=== PATIENT | male | born 1955 | race Caucasian/White ===

== ENCOUNTER 2016-12-12 23:14 | Inpatient (IN) | payer OTHER ==
[~2016-12-12] VITALS: Ht 182.9 cm; Wt 95.3 kg
--- NOTE | 2016-12-13 00:16 | NUR ---
PT FROM HOME C/O LEFT EAR INFECTION. PT STATES 2 WEEKS AGO HE WENT TO A URGENT CARE AND GIVEN AMOXICILLIN FOR 1 WEEK FOR EAR INFECTION AND THE INFECTION BECAME WORSE, WENT BACK TO URGENT CARE AND GIVEN VICODIN, CIPRO DROPS, AND LEVOFLAXCIN. PT STATES IT HAS BECOME EVEN WORSE WITH DISCHARGE FROM HIS EAR. PT STATES HE CANNOT HEAR ANYTHING OUT OF HIS LEFT EAR. PT DENIES RIVERA OR DIZZINESS.
--- NOTE | 2016-12-13 00:28 | ED EAR COMPLAINT ---
History of Present Illness General Chief Complaint: Ear Complaints Stated Complaint: "PER PT LT EAR INFECTION" Source: patient, old records Exam Limitations: no limitations Vital Signs & Intake/Output Vital Signs & Intake/Output Vital Signs Date Time Temp Pulse Resp B/P Pulse O2 O2 Flow FiO2 Ox Delivery Rate 12/13 0014 98.6 78 18 173/88 95 Room Air Allergies Coded Allergies: meperidine (From Demerol) (Severe, ANAPHYLAXIS 12/13/16) Uncoded Allergies: JELCO LG TERM IV (UNKNOWN 01/21/12) Triage Note: PT FROM HOME C/O LEFT EAR INFECTION. PT STATES 2 WEEKS AGO HE WENT TO A URGENT CARE AND GIVEN AMOXICILLIN FOR 1 WEEK FOR EAR INFECTION AND THE INFECTION BECAME WORSE, WENT BACK TO URGENT CARE AND GIVEN VICODIN, CIPRO DROPS, AND LEVOFLAXCIN. PT STATES IT HAS BECOME EVEN WORSE WITH DISCHARGE FROM HIS EAR. PT STATES HE CANNOT HEAR ANYTHING OUT OF HIS LEFT EAR. PT DENIES RIVERA OR DIZZINESS. Triage Nurses Notes Reviewed? yes Onset: Abrupt Duration: week(s): (2), constant Timing: recent history Injury Environment: home Severity: severe Severity Numbers: 10 No Modifying Factors: none Associated Symptoms: DENIES HPI: 61-year-old male with history of chronic stroke presents emergency room complaining of a 2 week history of progressively worsening constant now sharp severe 10 out of 10 left ear pain and swelling. He was seen in urgent care and was initially started on amoxicillin however states the swelling got worse. He denies any known trauma or swelling. He went back to the urgent care was prescribed Vicodin Cipro eardrops and Levaquin are states that it continues, he reports 2. Discharge from his ear. He denies headache dizziness lightheadedness chest pain no fever no chills no sore throat difficulty swallowing. He denies any right ear symptoms. He is not follow-up with an ear nose and throat physician (TAN MENJIVAR) Past History Travel History Traveled to [place] past 21 day No Medical History Any Pertinent Medical History? see below for history Cardiovascular: hyperlipidemia Surgical History Surgical History: none Psychosocial History What is your primary language Indonesian Tobacco Use: Never used ETOH Use: occasional use Illicit Drug Use: denies illicit drug use Family History Hx Contributory? No (TAN MENJIVAR) Review of Systems Review of Systems Constitutional: Reports: see HPI. All Other Systems: Reviewed and Negative Comments Review of systems: See HPI, All other systems negative. Constitutional, no chills no fever, no malaise HEENT: No visual changes no sore throat no congestion Cardiovascular: No chest pain , no palpitation Skin, no rashes, no change in skin Respiratory: No dyspnea no cough no sputum GI: No nausea no vomiting, no diarrhea : No dysuria Muscle skeletal: No joint pain, no joint swelling, no back pain, no neck pain, Neurologic: No numbness no headache Psych: No stress Heme/endocrine: No bruising no bleeding Immunology: No lymphadenopathy (TAN MENJIVAR) Physical Exam Physical Exam General Appearance: well developed/nourished, no apparent distress, alert, awake Ears: Left: swelling. Comments: Well-developed well-nourished person in no acute distress Head/Face: Atraumatic, no maxillary/frontal sinus tenderness, no facial swelling Eyes: PERRL, EOMI, no conjunctival injection. No nystagmus Ear: There is significant swelling tenderness and mild erythema over the left auricle, there is swelling and tenderness over the left temporal scalp there is no erythema no induration or fluctuance, there is significant swelling to the left EAC limiting evaluation of the TM The right External auditory canal and Tympanic membrane clear, no erythema, no FB. Nose: atraumatic.Normal inspection: No bleeding, no septal hematoma Throat: Moist mucous membranes.Pharynx normal. No pharyngeal erythema/exudate seen. No stridor/drooling or assymetry. No swelling or edema. Neck: Supple, no lymphadenopathy, FROM Back: Nontender, no CVA tenderness. Full range of motion Cardiovascular: Regular rate and rhythms no murmurs rubs Respiratory: No respiratory distress. Patient speaking in full complete sentences. Breath sounds clear to auscultation bilaterally: NO W/R/R Extremity: No edema, full range of motion of extremities Neuro: Alert oriented x3, motor sensory normal. There were no obvious focal neurologic abnormalities. Skin: No appreciable rash on exposed skin, skin is warm and dry. Psych: Mood and affect is normal, memory and judgment is normal. (TAN MENJIVAR) Progress Differential Diagnoses I considered in my differential mastoiditis otitis CHOLESTEATOMA, ABSCESS Plan of Care: Orders Procedure Date/time Status Nothing by Mouth 12/13 B Active Saline Lock 02/16 0212 Active Misc Message 12/13 211 Active ED Holding Orders 12/13 211 Active Vital Signs 12/13 211 Active Code Status 12/13 211 Active Admit to inpatient 12/13 210 Active Saline Lock 12/13 34 Active COMPREHENSIVE METABOLIC PANEL 12/13 34 Complete CBC WITHOUT DIFFERENTIAL 12/13 34 Complete Current Medications Sig/Ursula Start time Last Medication Dose Stop Time Status Admin Ceftazidime 1,000 MG ONCE ONE 12/13 214 UNVr (Fortaz) 12/13 215 Ampicillin Sodium/ 3,000 MG ONCE ONE 12/13 44 CAN Sulbactam Sodium 12/13 113 (Unasyn) Sodium Chloride 100 ML (Normal Saline 0.9%) Laboratory Tests 12/13/1639: Anion Gap 13, Estimated GFR > 60, BUN/Creatinine Ratio 15.6, Glucose 112 H, Calcium 9.3, Total Bilirubin 0.6, AST 24, ALT 41, Alkaline Phosphatase 69, Total Protein 7.4, Albumin 4.2, Globulin 3.2, Albumin/Globulin Ratio 1.3, CBC w Diff NO MAN DIFF REQ, RBC 4.58 L, MCV 88.6, MCH 30.4, RDW 14.6 H, MPV 8.8, Gran % 59.4, Lymphocytes % 26.8, Monocytes % 9.9 H, Eosinophils % 3.2, Basophils % 0.7 , Absolute Granulocytes 4.5, Absolute Lymphocytes 2.0, Absolute Monocytes 0.7 H , Absolute Eosinophils 0.2, Absolute Basophils 0.1, PUBS MCHC 34.3 Labs ordered old records reviewed patient acuity Unasyn, CT ordered Case discussed with and signed out to Dr. Brennan at 1 AM pending labs and CAT scan (TAN MENJIVAR) Diagnostic Imaging: Viewed by Me: CT Scan. Discussed w/RAD: CT Scan. Initial ED EKG: none Hand-Off Endorsed To: ALAN SIMENTAL,KARIN Thurman Endorsed Time: 113 Pending: CT, labs (TAN MENJIVAR) Differential Diagnoses I considered the following diagnoses in my evaluation of the patient: Radiology Impression: head ct... inflammatory changes over left temporal bone. partial opacification of ear canal... full report below. Comments: PATIENT: RITO WOODS PRESENT AGE: 61 PATIENT ACCOUNT NO: [id number] : 57 LOCATION: [facility] ORDERING PHYSICIAN: TAN SLOAN SERVICE DATE: 12/13/16 EXAM TYPE: CAT - CT HEAD WO IV CONTRAST EXAMINATION: CT HEAD WITHOUT CONTRAST CLINICAL INFORMATION: Left ear swelling, pain and tenderness over temporal scalp COMPARISON: None TECHNIQUE: Contiguous axial imaging was performed from the skull base to vertex without intravenous administration of contrast. DLP: 772.13 mGy-cm FINDINGS: There is no evidence of acute intracranial hemorrhage or territorial infarction. No abnormal mass effect or midline shift is seen. Fuentes to white matter differentiation is well preserved. No extra-axial fluid collections are identified. No evidence of hydrocephalus. There is soft tissue thickening and subcutaneous stranding surrounding the left external auditory canal which has an inflammatory appearance, and the canal lumen appears asymmetrically narrowed. Subcutaneous stranding extends over the left temporal bone. The left middle ear cavity also appears partially opacified. Mastoid air cells remain well aerated, with no acute bony abnormality seen. No discrete fluid collection is seen to suggest abscess formation. Paranasal sinuses are well-aerated. IMPRESSION: Inflammatory changes surrounding the left external auditory canal and overlying the left temporal bone. No acute underlying osseous changes are identified. Partial opacification of the left middle ear cavity. DICTATED BY: KAYLEE RICHARDS MD DATE/TIME DICTATED:12/13/16141 DIRECTOR AMBULATORY:RYAN DATE/TIME TRANSCRIBED:12/13/16141 CONFIDENTIAL, DO NOT COPY WITHOUT APPROPRIATE AUTHORIZATION. <Electronically signed in Other Vendor System> SIGNED BY: KAYLEE RICHARDS MD 12/13/16 0154 (ALAN SIMENTAL,KARIN Thurman) Departure Departure Disposition: HOME OR SELF CARE Condition: Stable Referrals: SAUD SIMENTAL,DANIEL WETZEL MD,JESUS Matamoros (PCP/Family) Additional Instructions: FOLLOW UP WITH EAR NOSE AND THROAT PHYSICIAN DR ANSARI THIS WEEK. RETURN AT ANYTIME SOONER WITH ANY CONCERNS Departure Forms: Customer Survey General Discharge Information (SALLY SLOAN,TAN) Departure Clinical Impression Primary Impression: Malignant otitis externa Secondary Impressions: Cellulitis Admission Note Spoke With: ROMEO PERDOMO MD Documentation of Exam: Documentation of any treatments & extenuating circumstances including Concerns Regarding Discharge (functional status, medication knowledge or non-compliance, living conditions, etc.) that warrant an admission rather than observation: pt with malignant otitis externa with significant tenderness/swelling around left ear. He has been on levaquin and ciprodex x 7 days with worsening symptoms. This represents a failure of outpatient antibiotics and is high risk given the anatomic involvement. No mastoiditis or sign of urgent surgical issues. Pt merits ceftaz to cover for pseudomonas (most likely culprit), would consider vancomycin.... Would consider ent/id consults in am. PA/EQUIPMENT SERVICE ASSOCIATE Co-Sign Statement Statement: ED Attending supervision documentation- [x] I saw and evaluated the patient. I have also reviewed all the pertinent lab results and diagnostic results. I agree with the findings and the plan of care as documented in the PA's/EQUIPMENT SERVICE ASSOCIATE's documentation. pt with significant tenderness around left ear with inflamed external ear canal. This represents failure of out patient abx. pt merits iv abx. [] I have reviewed the ED Record and agree with the PA's/EQUIPMENT SERVICE ASSOCIATE's documentation. [] Additions or exceptions (if any) to the PAs/EQUIPMENT SERVICE ASSOCIATE's note and plan are summarized below: [] (ALAN SIMENTAL,KARIN Thurman)
--- NOTE | 2016-12-13 00:30 | NUR ---
EVCRICKET BY TAN SÁNCHEZ
--- NOTE | 2016-12-13 00:50 | NUR ---
IV INSERTED. LABS DRAWN--SST,LAV,BLUE ALL SENT TO LAB [facility] 1.[address] PENDING
[2016-12-13 01:09] LABS: ABSOLUTE BASOPHIL COUNT 0.1 /CUMM (0.0-0.2); ABSOLUTE EOSINOPHIL COUNT 0.2 /CUMM (0.0-0.7); ABSOLUTE GRANULOCYTE CT 4.5 /CUMM (1.4-6.5); ABSOLUTE MONOCYTE COUNT 0.7 /CUMM (0.10-0.60); BASOPHIL % 0.7 % (0.0-2.0); EOSINOPHIL % 3.2 % (0-5); GRANULOCYTE % 59.4 % (42.2-75.2); HEMATOCRIT 40.6 % (42-52); MEAN CORPUSCULAR HGB 30.4 PG (27.0-31.0); MEAN CORPUSCULAR HGB CONC 34.3 G/DL (33.0-37.0); MEAN CORPUSCULAR VOLUME 88.6 FL (80.0-94.0); MEAN PLATELET VOLUME 8.8 FL (7.4-10.4); PLATELET COUNT 261 /CUMM (130-400); RBC DISTRIBUTION WIDTH 14.6 % (11.5-14.5); RED BLOOD CELL CT 4.58 /CUMM (4.70-6.10); WHITE BLOOD CELL COUNT 7.6 /CUMM (4.8-10.8)
--- NOTE | 2016-12-13 01:10 | NUR ---
TO CT VIA STRETCHER
--- NOTE | 2016-12-13 01:54 | CT SCAN REPORT ---
EXAMINATION: CT HEAD WITHOUT CONTRAST CLINICAL INFORMATION: Left ear swelling, pain and tenderness over temporal scalp COMPARISON: None TECHNIQUE: Contiguous axial imaging was performed from the skull base to vertex without intravenous administration of contrast. DLP: 772.13 mGy-cm FINDINGS: There is no evidence of acute intracranial hemorrhage or territorial infarction. No abnormal mass effect or midline shift is seen. Fuentes to white matter differentiation is well preserved. No extra-axial fluid collections are identified. No evidence of hydrocephalus. There is soft tissue thickening and subcutaneous stranding surrounding the left external auditory canal which has an inflammatory appearance, and the canal lumen appears asymmetrically narrowed. Subcutaneous stranding extends over the left temporal bone. The left middle ear cavity also appears partially opacified. Mastoid air cells remain well aerated, with no acute bony abnormality seen. No discrete fluid collection is seen to suggest abscess formation. Paranasal sinuses are well-aerated. IMPRESSION: Inflammatory changes surrounding the left external auditory canal and overlying the left temporal bone. No acute underlying osseous changes are identified. Partial opacification of the left middle ear cavity.
--- NOTE | 2016-12-13 02:01 | NUR ---
DR PHILLIPS AT BEDSIDE.
--- NOTE | 2016-12-13 02:15 | NUR ---
PT TO BE ADMITTED.
--- NOTE | 2016-12-13 02:37 | History & Physical ---
KRYSTIAN PEGUERO MD 12/13/16 0223: General Information and HPI Source of Information: patient, old records Exam Limitations: no limitations History of Present Illness: Patient is a 61-year-old male with significant past medical history of kidney stone, low back pain, aseptic meningitis (20 yrs ago), history of pericarditis times 2, history of chronic headache presented with chief complaints of infection in left ear since 2 weeks. Patient Claims that, 2 weeks ago he started having pain in the left ear. So he went to urgent care at [place] and was given a course of amoxicillin for a week without any improvement. Even his symptoms got worse, in form of ear discharge, pain and loss of hearing. So he went again to see the doctor over there and was given Vicodin, levofloxacin, ciprofloxacin eyedrops. He took all this medication for 2-3 days without any improvement, so he came to [place] ED for further management. According to him, pain is sharp, piercing, and throbbing, radiating to the head, left eye, and left Jaw. He is also complaining of tinnitus and discharge coming out from left ear with unusual odour. He also lost his hearing. He denies fever, chills, trauma, poking his ear with ear buds, nausea, vomiting, blurry vision, difficulty in swallowing, slurred speech, bumps in neck, headache , dizziness, lightheadedness, chest pain. He may think that it can be associated with the bathing, soaking tub. 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 Denies smoking, occasionally drinks alcohol, denies any drug abuse. Allergies-Demerol Allergies/Medications Allergies: Coded Allergies: meperidine (From Demerol) (Severe, ANAPHYLAXIS 12/13/16) Uncoded Allergies: JELCO LG TERM IV (UNKNOWN 01/21/12) Home Med list Clonazepam 0.5 MG TABLET 1 TAB PO QPM ANXIETY (Reported) Paroxetine HCl 20 MG TABLET 1 TAB PO QPM ANXIETY (Reported) Zolpidem Tartrate (Zolpidem Tartrate ER) 12.5 MG TAB.MPHASE 1 TAB PO QPMP ANXIETY (Reported) Past History Travel History Traveled to [place] past 21 day No Medical History Cardiovascular: hyperlipidemia Surgical History Surgical History: none Past Family/Social History Psychosocial History ETOH Use: occasional use Illicit Drug Use: denies illicit drug use Review of Systems Review of Systems Constitutional: Denies: chills, diaphoresis, fever, malaise, weakness. EENTM: Reports: ear discharge, ear pain, ear redness, hearing changes. Cardiovascular: Denies: no symptoms. Respiratory: Denies: no symptoms. GI: Denies: no symptoms. Genitourinary: Denies: no symptoms. Musculoskeletal: Reports: back pain. Skin: Denies: no symptoms. Neurological/Psychological: Reports: anxiety. Exam & Diagnostic Data Last 24 Hrs of Vital Signs/I&O Vital Signs Date Time Temp Pulse Resp B/P Pulse O2 O2 Flow FiO2 Ox Delivery Rate 12/13 0516 97.5 70 18 144/80 95 Room Air 12/13 0326 97.8 72 18 141/80 94 Room Air 12/13 0014 98.6 78 18 173/88 95 Room Air Intake & Output 12/13 0800 12/13 0000 12/12 1600 Intake Total 200 Output Total Balance 200 Intake, IV 200 Patient 95.254 kg Weight Physical Exam General Appearance Alert, Oriented X3, Cooperative, No Acute Distress Skin redness and swelling of the left side of the face HEENT Atraumatic, PERRLA, EOMI, external ear canal is occluded Neck Supple, No JVD Cardiovascular Normal S1, Normal S2 Lungs Clear to Auscultation, Normal Air Movement Abdomen Soft, No Tenderness, distended Neurological Normal Gait, Normal Speech, Strength at 5/5 X4 Ext Extremities No Clubbing, No Cyanosis, No Edema Vascular Normal Pulses, Pulses Symmetrical Assessment/Plan Assessment: Patient is a 61-year-old male with significant past medical history of kidney stone, low back pain, a septic meningitis(20 yrs ago), history of pericarditis times 2, history of chronic headache presented with chief complaints of infection in eft ear since 2 weeks. Vital signs at the time of admission-temperature 98.6, pulse 78, respiratory rate 18, blood pressure 173/88, SPO2 95% on room air Pertinent labs- CT head - Inflammatory changes surrounding the left external auditory canal and overlying the left temporal bone. No acute underlying osseous changes are identified. Partial opacification of the left middle ear cavity. Problem list- Malignant otitis externa or probably otitis media History of Renal stones Chronic low back pain History of aseptic meningitis, with complication of chronic headache History of pericarditis x 2 Depression Anxiety Plan - * We will admit the patient and the general medical floor * We'll start patient on inj ceftazidime/ciprofloxacin * We placed consult for ENT and follow the recommendation * We will do pain management depends on severity * We will continue all home medication * Diet - regular Diet * Code status - FC * DVT prophylaxis - ALPS/Heparin As Ranked By This Provider Problem List: 1. Otitis media 2. Malignant otitis externa 3. Otalgia of left ear Core Measures/Miscellaneous Acute Coronary Syndrome ACS Diagnosis: No Cerebrovascular Accident CVA/TIA Diagnosis: No Congestive Heart Failure CHF Diagnosis: No Venous Thromboembolism VTE Risk Factors: Age > 40 VTE Prophylaxis Ordered Inpt: Mechanical (ALPS/TEDS) No Mech VTE prophylaxis d/t: No contraindications No VTE Pharm Prophylaxis d/t: No contraindications VTE Diagnosis: No VTE Type: NONE VTE Confirmed by (Test): NONE Severe Sepsis Severe Sepsis Present: No Septic Shock Septic Shock Present: No Miscellaneous Documentation Attending Case Discussed With: ROMEO PERDOMO MD Primary Care Physician: JESUS WETZEL MD Patient sees these Specialists none Level of Patient Care: General Medicine CONOR SUMMERS 12/13/16 0522: Resident Review Statement Resident Statement: discussed with internal consultant Other Findings: He is 61-year-old man with past medical history of pericarditis, aseptic meningitis, kidney stones, back pain and headaches presented to ER with complaint of left ear swelling, redness, pain, hearing loss and clear ear discharge. According to patient also started 2 weeks ago. He went to a walk-in clinic and was prescribed with amoxicillin and Motrin. He finished antibiotic course for full 7 days but did not get any relief. He went back to walk-in clinic and was prescribed again with ciprofloxacin eardrops, oral levofloxacin and Vicodin. This morning patient's ear pain was unbearable and he came to ER. He denies fever, chills, dizziness or lightheadedness, vision changes, swallowing difficulty, sore throat, runny nose, tinnitus or fullness of ear. He feels throbbing pain in his left ear and pain is radiating down to his chart and up to his anabaptism. He reports having cold like symptoms a week before all this started. He denies any trauma to his ear or swimming but reports having bubblebath. He denies smoking, drinking alcohol or use of illicit drugs. Vitals on admission: Temperature 98.6, pulse 78, respiratory rate 18, blood pressure 173/88 and oxygen saturation 95% on room air Pertinent physical exam findings: Swelling and redness of the left external ear. External auditory canal is swollen and narrow. No discharge. No lymphadenopathy post auricle and cervical Head CT: Inflammatory changes surrounding the left external auditory canal and overlying the left temporal bone. No acute underlying osseous changes are identified. Partial opacification of the left middle ear cavity. Assessment and plan He is 61-year-old man with past medical history of pericarditis, aseptic meningitis, kidney stones, back pain and headaches presented to ER with complaint of left ear swelling, redness, throbbing pain, hearing loss and clear ear discharge. Physical exam is notable for otitis externa. CT head is showing partial opacification of left middle ear cavity. We will admit patient to general medicine floor for otitis externa and media. Because patient failed outpatient management with antibiotics so he need IV antibiotics. There is at risk of development of malignant otitis externa. We will start patient on IV ciprofloxacin and ceftaz. ENT consult in a.m. Pain management. Will continue his home medications. Patient was given flu vaccine in ER. Subcutaneous heparin for DVT prophylaxis Full code ROMEO PERDOMO 12/13/16 0557: Attending MD Review Statement Attending Statement Attending MD Statement: examined this patient, discuss w/resident/PA/MEDICAL AIDE, agreed w/resident/PA/MEDICAL AIDE, discussed with family, reviewed EMR data (avail), reviewed images, amended to note Attending Assessment/Plan: CC: Left ear pain pmh: Nephrolithiasis, chronic low back pain, depression, anxiety Patient presented in ER complaining of a 2 week history of left ear pain. It started after upper respiratory prodrome, followed by left ear pain. It is progressively worsening , constant, now sharp severe 10/10 in intensity, worsening swelling in left auricle. He also complains of loss of hearing on the left side which started today and ear discharge which started yesterday, he did not look at the color of discharge. He was seen in urgent care 2 weeks back and was started on amoxicillin. Has pain and swelling was worsening he followed up in antibiotics were changed to Levaquin. After taking Levaquin for 2-3 days pain and swelling still persisted and discharge started. The pain was maximum today so he came to ER. He denies any known trauma, swimming, no history of diabetes, no history of recurrent infections. He denies headache, dizziness, lightheadedness, tinnitus, chest pain , neck pain, fever, chills, sore throat, difficulty swallowing. Vitals: Afebrile, otherwise stable. Complete physical examination unremarkable except left ureter has marked inflamed auricle but no evidence of any necrosis or gangrene, warm, tender, erythematous. External auditory canal is closed with wall edema, trace watery discharge, otherwise examination of external ear, tympanic membrane is not possible. Tenderness over temporal area, mastoid cells, infra-auricular area. Neck supple, no obvious lymphadenopathy but some fullness in infra-auricular area present. No nystagmus, nose throat examination normal. Labs: CBC, CMP unremarkable. CT head: Inflammatory changes surrounding the left external auditory canal and overlying the left temporal bone. No acute underlying osseous changes are identified. Partial opacification of the left middle ear cavity. A and P #1 otitis externa and otitis media, severe but no evidence of necrosis. Failed outpatient by mouth antibiotics. Continue dual antibiotic coverage for now with ciprofloxacin and ceftaz, given commonest infection with Pseudomonas. And patient was on Levaquin without improvement. Adequate pain control with and NSAID and opiates, ENT consult in a.m. #2 check coag studies #3 continue his home medications for depression and anxiety
--- NOTE | 2016-12-13 02:40 | NUR ---
HOUSE STAFF HERE TO EVAL AND WRITE ORDERS.
--- NOTE | 2016-12-13 04:10 | NUR ---
PT ASSIGNED TO ROOM [id number]
[2016-12-13] MEDS ORDERED: ZOLPIDEM TART12.5 M1 PO (04:12)
[2016-12-13] MEDS ORDERED: PAROXETINE HCL20 M1 PO (04:20)
[2016-12-13] MEDS ORDERED: CLONAZEPAM0.5 M2 PO (04:21)
--- NOTE | 2016-12-13 04:30 | NUR ---
REPORT CALLED TO PARDEEP MOLINA
[2016-12-13 05:16] VITALS: BP 144/80
--- NOTE | 2016-12-13 05:59 | Admission Certification ---
Admission Certification Certification Statement - As attending physician, I certify that at the time of - admission, based on clinical presentation, severity of - symptoms, need for further diagnostic testing and - therapeutic interventions, and risk of adverse outcomes - without in-hospital treatment, in my clinical assessment, - this patient requires an acute hospital stay for a minimum - of two nights or longer. I have also considered psychsocial - factors such as support system, advanced age, financial - issues, cognitive issues, and failed out-patient treatments, - past re-admission history, safety of patient, and lack of - compliance as applicable. Specific rationale supporting this admission is: Otitis media and severe otitis externa failed outpatient treatment
--- NOTE | 2016-12-13 07:16 | NUR ---
PT ADMITTED FROM ER VIA . OREINTED TO STAFF, ROOM, CALL MAST, ETC. A/O X3. RA. SKIN CDI. VSS. PAIN IN LEFT EAR TOLERABLE, WILL CONTINUE TO MONITOR.
[2016-12-13 08:35] VITALS: BP 138/90
--- NOTE | 2016-12-13 12:06 | Cons- Ear,Nose&Throat ---
General Information and HPI Consulting Request Date of Consult: 12/13/16 Requested By: ROMEO PERDOMO MD Reason for Consult: Left earache for weeks Source of Information: patient Exam Limitations: no limitations History of Present Illness: Patient was in and out of walkin and E/R because of left ear ache, and difficulty hearing .HE was treated with po antibioics without relief of the sympatoms Allergies/Medications Allergies: Coded Allergies: meperidine (From Demerol) (Severe, ANAPHYLAXIS 12/13/16) Uncoded Allergies: JELCO LG TERM IV (UNKNOWN 01/21/12) Home Med List: Clonazepam 0.5 MG TABLET 1 TAB PO QPM ANXIETY (Reported) Paroxetine HCl 20 MG TABLET 1 TAB PO QPM ANXIETY (Reported) Zolpidem Tartrate (Zolpidem Tartrate ER) 12.5 MG TAB.MPHASE 1 TAB PO QPMP ANXIETY (Reported) Past History Medical History EENT: NONE Cardiovascular: hyperlipidemia Respiratory: NONE Gastrointestinal: NONE Hepatic: NONE Renal: NONE Musculoskeletal: NONE Psychiatric: NONE Endocrine: NONE Blood Disorders: NONE Cancer(s): NONE 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 Surgical History Pertinent Surgical History: 1 BACK SURGERY Psychosocial History Smoking Status: Never Smoked ETOH Use: occasional use Illicit Drug Use: denies illicit drug use Exam & Diagnostic Data Vital Signs and I&O Vital Signs Date Time Temp Pulse Resp B/P Pulse O2 O2 Flow FiO2 Ox Delivery Rate 12/13 0835 97.9 69 20 138/90 95 Room Air 12/13 0516 97.5 70 18 144/80 95 Room Air 12/13 0326 97.8 72 18 141/80 94 Room Air 12/13 0014 98.6 78 18 173/88 95 Room Air Intake & Output 12/13 1600 12/13 0800 12/13 0000 12/12 1600 12/12 0800 12/12 0000 Intake Total 320 Output Total Balance 320 Intake, IV 200 Intake, Oral 120 Patient 210 lb Weight Left ear canal swelling with tenderness and left upper neck tenderness no erythematous change, right ear canl clear, no pain left ear no discahrge Physical Exam General Appearance: alert, awake, some disrtress because of pain Head: normal appearance Ears, Nose, Throat: normal pharynx (Left ear canal swelling no dis) Neck: tender lateral (left upper neck some tenderner), left upper neck some tenderness , no skin erythematous change Respiratory: chest non-tender, quiet respiration, lungs clear Assessment/Plan Assessment/Plan left otit ext with reactive lymphadenopathy,Wick inserted, left ear. Ciprodes shawanda in the left ear,Sample given to the patient, Heating pad ,Pain control, Discahrge tormorrow with Cipro 500 mg bid, Ciprodex 3 gtt bid for one week, Pian medicine .F/u in office Saturday Consult Acknowledgment - Thank you for your consult request.
--- NOTE | 2016-12-13 15:44 | PN- Att Addend ---
Attending Addendum Attending Brief Note Laboratory Tests 12/13/16 0040: Anion Gap 13, Estimated GFR > 60, BUN/Creatinine Ratio 15.6, Glucose 112 H, Calcium 9.3, Total Bilirubin 0.6, AST 24, ALT 41, Alkaline Phosphatase 69, Total Protein 7.4, Albumin 4.2, Globulin 3.2, Albumin/Globulin Ratio 1.3, CBC w Diff NO MAN DIFF REQ, RBC 4.58 L, MCV 88.6, MCH 30.4, RDW 14.6 H, MPV 8.8, Gran % 59.4, Lymphocytes % 26.8, Monocytes % 9.9 H, Eosinophils % 3.2, Basophils % 0.7 , Absolute Granulocytes 4.5, Absolute Lymphocytes 2.0, Absolute Monocytes 0.7 H , Absolute Eosinophils 0.2, Absolute Basophils 0.1, PUBS MCHC 34.3 Vital Signs Date Time Temp Pulse Resp B/P Pulse O2 O2 Flow FiO2 Ox Delivery Rate 12/13 0835 97.9 69 20 138/90 95 Room Air 12/13 0516 97.5 70 18 144/80 95 Room Air 12/13 0326 97.8 72 18 141/80 94 Room Air 12/13 0014 98.6 78 18 173/88 95 Room Air Pt seen by ENT and wick placed in left ear and started on ciprodex ear drops. Plan is to dc him on po cipro tomorrow with close f/u with ENT after dc.
[2016-12-13 15:48] VITALS: BP 168/90
[2016-12-13] MEDS ORDERED: CIPRODEX OTIC7.5 ML AS (16:29)
[2016-12-13] MEDS ORDERED: CIPRO500 M1 PO (16:29)
[2016-12-13 23:56] VITALS: BP 152/86
[2016-12-14] MEDS ORDERED: TYLENOL WITH C1 EACH PO (07:22)
--- NOTE | 2016-12-14 07:30 | Patient Discharge Instructions ---
Discharge Instructions General Discharge Information You were seen/treated for: LEFT EAR PAIN WITH INFECTION Special Instructions: Please seek immediate medical attention if your ear pain/discharge increases, or you develop fevers/chills, headache or confusion. You have been prescribed oral antibiotics and ear drops for 1 week. Please use the wick that was placed to administer your ear drops. You have also been given pain medication, this medication contains acetaminophen. Please do not take any over the counter products containing acetaminophen (Tylenol) while on this medication. Please follow up. Please use warm compresses on your left ear for pain. Acute Coronary Syndrome Inclusion Criteria At DC or during hospital stay patient has or had the following: ACS DIAGNOSIS No Discharge Core Measures Meds if any: Prescribed or Continued at Discharge Meds if any: NOT Prescribed or Continued at Discharge Congestive Heart Failure Inclusion Criteria At DC or during hospital stay patient has or had the following: CHF DIAGNOSIS No Discharge Core Measures Meds if any: Prescribed or Continued at Discharge Meds if any: NOT Prescribed or Continued at Discharge Cerebrovascular accident Inclusion Criteria At DC or during hospital stay patient has or had the following: CVA/TIA Diagnosis No Discharge Core Measures Meds if any: Prescribed or Continued at Discharge Meds if any: NOT Prescribed or Continued at Discharge Venous thromboembolism Inclusion Criteria VTE Diagnosis No VTE Type NONE VTE Confirmed by (Test) NONE Discharge Core Measures - Per Current guidelines, there needs to be overlap - treatment for the first 5 days of Warfarin therapy. - If discharged on Warfarin prior to 5 days of - overlap therapy, the patient will need to be - assessed for post discharge needs including - *Post discharge parental anticoagulation - *Warfarin and/or parental anticoagulation education - *Follow up date to check INR post discharge At least 5 days overlap therapy as Inpatient No Meds if any: Prescribed or Continued at Discharge Note: Overlap Therapy is Warfarin and Anticoagulant Meds if any: NOT Prescribed or Continued at Discharge
[2016-12-14 08:34] VITALS: BP 132/70
--- NOTE | 2016-12-14 09:12 | PN- Housestaff ---
Subjective Follow-up For: Left ear pain Subjective: Pt is seen and examined at bedside. Even though patient still endorses left ear pain, he reports that it is significantly reduced and he feels much better. Patient denies any acute complaints such as chest pain, palpitation, shortness of breath, fever, chills, confusion, headaches, abdominal pain or dysuria. No acute overnight event reported by nursing staff Review of Systems Constitutional: Reports: no symptoms. Objective Last 24 Hrs of Vital Signs/I&O Vital Signs Date Time Temp Pulse Resp B/P Pulse O2 O2 Flow FiO2 Ox Delivery Rate 12/14 0834 98.1 82 20 132/70 93 Room Air 12/13 2356 98.0 72 20 152/86 93 Room Air Intake & Output 12/14 1600 12/14 0800 12/14 0000 Intake Total 120 500 Output Total Balance 120 500 Intake, Oral 120 500 Physical Exam General Appearance: Alert, Oriented X3, Cooperative, No Acute Distress Other Physical Findings: General Appearance Alert, Oriented X3, Cooperative, No Acute Distress Skin redness and swelling of the left side of the face HEENT: Wickk on left ear. Neck Supple, No JVD Cardiovascular Normal S1, Normal S2 Lungs Clear to Auscultation, Normal Air Movement Abdomen Soft, No Tenderness, distended Extremities No Clubbing, No Cyanosis, No Edema Vascular Normal Pulses, Pulses Symmetrical Assessment/Plan Assessment: This is a 61-year-old male with a past medical history of pericarditis, aseptic meningitis, anxiety, presents with 2 week old. Patient was seen in urgent care and prescribed amoxicillin for his ear pain however it was refractory to the full ABX course, returned to urgent care and received levofloxacin. However, due to of levofloxacin use he presented to the [facility] ED because his ear pain became more intense and for the first time he noticed discharge which she cannot describe whether was clear or colorful. Patient was admitted to medicine floor for evaluation and management of worsening left otitis ear infection that was refractory to previous ABX therapy. Assessment and plan #Left ear pain Patient's ear pain secondary to left external otitis with lymphadenopathy. Was initially started on antibiotics of ceftaz and ciprofloxacin for double Pseudomonas coverage. Following day patient was evaluated by ENT who placed a wick, and recommended patient to be discharged next day on ciprofloxacin and Ciprodex eardrops. Patient pain was managed by tramadol and percocet as needed. Plan * Discharge patient on Cipro Floxin 500 mg by mouth twice a day and Ciprodex 3 drops twice a day to affected ear. * Tylenol 3 for pain management * Patient is to follow-up with ENT on Saturday Problem List: 1. Left ear pain Pain Ratin Pain Location: left ear Pain Goal: Pain 4 or less Pain Plan: per pain pathwy Tomorrow's Labs & Rationales: none-discharge
--- NOTE | 2016-12-14 15:15 | PN- Att Addend ---
Attending MD Review Statement Attending Statement Attending MD Statement: examined this patient, discuss w/resident/PA/DENTAL INSTRUMENT MAKER, agreed w/resident/PA/DENTAL INSTRUMENT MAKER, reviewed EMR data (avail), discussed w/nursing Attending Assessment/Plan: Vital Signs Date Time Temp Pulse Resp B/P Pulse O2 O2 Flow FiO2 Ox Delivery Rate 12/14 0834 98.1 82 20 132/70 93 Room Air 12/13 2356 98.0 72 20 152/86 93 Room Air 12/13 1548 97.8 70 19 168/90 94 Left otitis externa with reactive lymphadenopathy and failed outpatient therapy. Dc today per ENT recommendations with wick, ciprodex ear drops and po cipro
--- NOTE | 2016-12-17 06:51 | Discharge Summary ---
Visit Information Visit Dates Admission Date: 12/13/16 Discharge Date: 12/14/16 Hospital Course Course Attending Physician: YENNIFER SIMENTAL,JASON Tomlin Primary Care Physician: RASHARD SIMENTAL,JESUS Matamoros Hospital Course: This is a 61 yo gentleman with a h/o of kidney stone, low back pain, aseptic meningitis (20 yrs ago), history of pericarditis, presented with chief complaints of infection in left ear for 2 weeks. It started after upper respiratory prodrome, followed by left ear pain. It is progressively worsened , with constant, sharp severe 10/10 in intensity, worsening swelling in left auricle. He also complained of loss of hearing on the left side which started during admission day and ear discharge which started previous day. He was seen in urgent care 2 weeks back and was started on amoxicillin. Has pain and swelling was worsening he followed up in antibiotics were changed to Levaquin. After taking Levaquin for 2-3 days pain and swelling still persisted and discharge started. The pain was maximum today so he came to ER. He denied any known trauma, swimming, no history of diabetes, no history of recurrent infections. He denies headache, dizziness, lightheadedness, tinnitus, chest pain , neck pain, fever, chills, sore throat, difficulty swallowing. Vitals: Afebrile, otherwise stable. Complete physical examination unremarkable except left ureter has marked inflamed auricle but no evidence of any necrosis or gangrene, warm, tender, erythematous. External auditory canal is closed with wall edema, trace watery discharge, otherwise examination of external ear, tympanic membrane is not possible. Tenderness over temporal area, mastoid cells, infra-auricular area. Neck supple, no obvious lymphadenopathy but some fullness in infra-auricular area present. No nystagmus, nose throat examination normal. Pt was then admitted for evaluation and management of possible left otitis externa. Ceftaz and Vancomycin was initially started. Following day, ENT consult was obtained. Diagnosis was deemed to be left otit ext with reactive lymphadenopathy. A Wick was inserted on the affected left ear. Ciprodex drops was started and patient was started on cipro antibiotic ( Ceftaz and vanc was stopped). His pain was managed by percocet and heating pad. Pt's pain and symptoms subsequently improved and was discharged with a 7 day course of cipro 500 mg po bid and Ciprodex drops for 7 days. Pt was instructed to f/u with ENT on an outpatient basis. Allergies: Coded Allergies: meperidine (From Demerol) (Severe, ANAPHYLAXIS 12/13/16) Uncoded Allergies: JELCO LG TERM IV (UNKNOWN 01/21/12) Pertinent Lab Results: SERVICE DATE: 12/13/16 EXAM TYPE: CAT - CT HEAD WO IV CONTRAST EXAMINATION: CT HEAD WITHOUT CONTRAST CLINICAL INFORMATION: Left ear swelling, pain and tenderness over temporal scalp COMPARISON: None TECHNIQUE: Contiguous axial imaging was performed from the skull base to vertex without intravenous administration of contrast. DLP: 772.13 mGy-cm FINDINGS: There is no evidence of acute intracranial hemorrhage or territorial infarction. No abnormal mass effect or midline shift is seen. Fuentes to white matter differentiation is well preserved. No extra-axial fluid collections are identified. No evidence of hydrocephalus. There is soft tissue thickening and subcutaneous stranding surrounding the left external auditory canal which has an inflammatory appearance, and the canal lumen appears asymmetrically narrowed. Subcutaneous stranding extends over the left temporal bone. The left middle ear cavity also appears partially opacified. Mastoid air cells remain well aerated, with no acute bony abnormality seen. No discrete fluid collection is seen to suggest abscess formation. Paranasal sinuses are well-aerated. IMPRESSION: Inflammatory changes surrounding the left external auditory canal and overlying the left temporal bone. No acute underlying osseous changes are identified. Partial opacification of the left middle ear cavity. DICTATED BY: KAYLEE RICHARDS MD Disposition Summary Disposition Principal Diagnosis: Otitis externa Additional Diagnosis: Ear pain Discharge Disposition: home or self care Discharge Instructions General Discharge Information Code Status: Full Code Patient's Diet: regular Patient's Activity: as tolerated Follow-Up Instructions/Appts: F/u with ENT. Medications at Discharge Discharge Medications: Continue taking these medications: Zolpidem Tartrate (Zolpidem Tartrate ER) 12.5 MG TAB.MPHASE 1 Tablet ORAL Every night as needed Qty = 30 Paroxetine HCl (Paroxetine HCl) 20 MG TABLET 1 Tablet ORAL Every night Qty = 135 Clonazepam (Clonazepam) 0.5 MG TABLET 1 Tablet ORAL Every night Qty = 30 Start taking the following new medications: Ciprofloxacin HCl (Cipro) 500 MG TABLET 1 Tablet ORAL TWICE DAILY Qty = 14 No Refills Ciprofloxacin HCl/Dexameth (Ciprodex Otic Suspension) 0.3 %-0.1 % DROPS.SUSP 3 DROP Left Ear TWICE DAILY Days = 7 No Refills Instructions: dispense qs#7 days Tylenol With Codeine (Tylenol With Codeine #3 Tablet) 300 MG-30 MG TABLET 1 Tablet ORAL EVERY 4-6 HOURS NEEDED as needed for EAR PAIN Qty = 18 No Refills Copies To: RASHARD SIMENTAL,JESUS Matamoros Attending MD Review Statement Documenting Attending: YENNIFER SIMENTAL,JASON Tomlin Other Findings: Agree with the above discharge plan.
== END 2016-12-14 12:00 | DRG 153 ==
LOC: ENRESERVTM → ENRESERVDT → ERH 23:14 → ENPENDDIS 12-13 02:11 → 2NB 12-13 02:11 → ERHI 12-13 02:11 → 2NB 12-13 04:50
PROVIDERS: Physician Assistant Medical; ADMIT Internal Medicine
DX: H66.92 Otitis media, unspecified, left ear (principal); H60.92 Unspecified otitis externa, left ear; R59.1 Generalized enlarged lymph nodes
CPT/HCPCS: 2NBP; 87040; 96374; J0713; J0744; J1644; J1885; J7060; Q2036

== ENCOUNTER 2018-04-09 11:36 | Emergency (ER) | payer OTHER ==
[~2018-04-09] VITALS: Ht 182.9 cm; Wt 104.3 kg
[~2018-04-09 11:36] MED LIST: ACULAR5 ML OPH; CIPRO500 M1 PO; CIPRODEX OTIC7.5 ML AS; CLONAZEPAM0.5 M2 PO; PAROXETINE HCL20 M1 PO; POLYTRIM EYE DR10 ML OPH; TYLENOL WITH C1 EACH PO; ZOLPIDEM TART12.5 M1 PO
[2018-04-09 12:39] LABS: ABSOLUTE BASOPHIL COUNT 0 /CUMM (0.0-0.2); ABSOLUTE EOSINOPHIL COUNT 0.1 /CUMM (0.0-0.7); ABSOLUTE MONOCYTE COUNT 0.2 /CUMM (0.10-0.60); BASOPHIL % 0.7 % (0.0-2.0); EOSINOPHIL % 1.8 % (0-5); GRANULOCYTE % 55.9 % (42.2-75.2); HEMATOCRIT 40.7 % (42-52); MEAN CORPUSCULAR HGB 30.7 PG (27.0-31.0); MEAN CORPUSCULAR HGB CONC 34.2 G/DL (33.0-37.0); MEAN CORPUSCULAR VOLUME 89.8 FL (80.0-94.0); MEAN PLATELET VOLUME 8.8 FL (7.4-10.4); PLATELET COUNT 258 /CUMM (130-400); RBC DISTRIBUTION WIDTH 14.2 % (11.5-14.5); RED BLOOD CELL CT 4.53 /CUMM (4.70-6.10); WHITE BLOOD CELL COUNT 5.4 /CUMM (4.8-10.8)
[2018-04-09] MEDS ORDERED: ESCITALOPRAM OX10 MG PO (14:27)
--- NOTE | 2018-04-09 14:40 | CT SCAN REPORT ---
EXAMINATION: CT HEAD ANGIOGRAM CLINICAL INFORMATION: Severe headache after lifting. Evaluate for hemorrhage or aneurysm. COMPARISON: CT head 12/13/2016. TECHNIQUE: Bilingual Spanish Inbound Sales images were obtained. A CT angiogram of the head was performed in the arterial phase after the intravenous administration of 95 mL Optiray 320. Pre and delayed postcontrast images of the head were also obtained. MIP reconstructions were generated in multiple orientations at the acquisition workstation. Multiple three-dimensional surface rendered images and maximum intensity projection images were generated on a dedicated 3-D lab workstation. Arterial stenoses are measured in accordance with NASCET criteria or similar method if applicable. Total exam dose-length product 2096.2 mGy-cm FINDINGS: Head: Delayed postcontrast images reveal no abnormal intracranial mass or enhancement. There is no intracranial mass effect or midline shift. Lateral and third ventricles are normal. No hydrocephalus. Feuntes-white matter differentiation is grossly preserved and there is no evidence of acute territorial infarct. The calvarium and skull base are intact. Mastoid air cells and middle ear cavities are well aerated. Mild paranasal sinus disease primarily affecting the anterior ethmoids. CT angiogram head: The visualized distal extracranial internal carotid arteries are patent. The petrous, cavernous, and supraclinoid segments of the internal carotid arteries are patent. The intradural vertebral artery segments and basilar artery are patent. Anterior, middle, and posterior cerebral artery complexes are normal. No evidence of high-grade stenosis or proximal vascular occlusion. IMPRESSION: Normal CT angiogram of the head. No evidence of aneurysm. No high-grade stenosis or proximal occlusion is visualized within the intracranial vessels.
[2018-04-09 14:50] VITALS: BP 142/78
[2018-04-09] MEDS ORDERED: BUTALB-ACETAMI1 EACH PO (14:57)
--- NOTE | 2018-04-09 14:57 | ED HEADACHE COMPLAINT ---
History of Present Illness General Chief Complaint: Headache Stated Complaint: RIVERA AFTER LIFTING X 2 DAYS AGO Source: patient Exam Limitations: no limitations Vital Signs & Intake/Output Vital Signs & Intake/Output Vital Signs Date Time Temp Pulse Resp B/P B/P Pulse O2 O2 Flow FiO2 Mean Ox Delivery Rate 04/09 1450 98.1 74 18 142/78 98 Room Air 04/09 1204 98.8 75 18 163/78 97 Room Air ED Intake and Output 04/10 0000 04/09 1200 Intake Total 0 Output Total Balance 0 Intake, Oral 0 Patient 230 lb Weight Weight Estimated Measurement Method Allergies Coded Allergies: meperidine (From Demerol) (Severe, ANAPHYLAXIS 12/13/16) Uncoded Allergies: JELCO LG TERM IV (UNKNOWN 01/21/12) Reconcile Medications Butalb/Acetaminophen/Caffeine (Wjwvfp-Udzqarbz-Kzre 50-325-40) 50 MG-325 MG-40 MG TABLET 1-2 TAB PO Q8P PRN headache Clonazepam 0.5 MG TABLET 1 TAB PO QPM ANXIETY (Reported) Escitalopram Oxalate 10 MG TABLET 1 TAB PO DAILY MENTAL HEALTH (Reported) Zolpidem Tartrate (Zolpidem Tartrate ER) 12.5 MG TAB.MPHASE 1 TAB PO QPMP ANXIETY (Reported) Triage Note: RECEIVED 62 YO MALE C/O HE DEVELOPED SEVERE PAIN TO THE TOP OF HIS HEAD WHEN HE WAS LIFTING VERY HEAVY MATERIAL (150 LBS) WHEN HE WAS WORTKING ON HIS HOUSE. PT REPORTS PAIN RADIATED FROM NECK TO TOP OF HIS HEAD. NO LOC, NO N/V. Triage Nurses Notes Reviewed? yes Onset: Abrupt Duration: hour(s):, day(s):, constant Timing: recent history Quality/Severity: severe HPI: 62-year-old male comes into the emergency room for evaluation of headache. Patient reports that a couple days ago he was lifting stone and then was twisting some mortar and a 2 and felt a sudden onset pain in his head right at the top. Severe in nature. Almira like his head was can explode. Denies any nausea vomiting dizziness lightheadedness. He reports that he has chronic intermittent blurry vision but denies any baseline change from his normal vision. He reports that he was lifting heavy stone about 150 pounds when it occurred. He had pain to his neck on each side and pain with movement of his neck (Jadiel Hicks) Past History Travel History Traveled to [place] past 21 day No Medical History Any Pertinent Medical History? 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 No (Jadiel Hicks) Review of Systems Review of Systems Constitutional: Reports: no symptoms. Eyes: Reports: no symptoms. Ears, Nose, Throat, Mouth: Reports: no symptoms. Respiratory: Reports: no symptoms. Cardiovascular: Reports: no symptoms. Gastrointestinal/Abdominal: Reports: no symptoms. Genitourinary: Reports: no symptoms. Musculoskeletal: Reports: see HPI. Skin: Reports: no symptoms. Neurological/Psychological: Reports: see HPI. Hematologic/Endocrine: Reports: no symptoms. Endocrine: Reports: no symptoms. Immunologic/Allergic: Reports: no symptoms. All Other Systems: Reviewed and Negative (Jadiel Hicks) Physical Exam Physical Exam General Appearance: well developed/nourished, no apparent distress, alert, awake Head: atraumatic, normal appearance Eyes: Bilateral: normal appearance, PERRL, EOMI. Ears, Nose, Throat: normal ENT inspection, hearing grossly normal Neck: normal inspection, supple, full range of motion, paraspinal muscle tenderness Respiratory: no respiratory distress Cardiovascular: regular rate/rhythm Back: normal inspection Extremities: normal inspection, normal capillary refill, normal range of motion, no edema Psychiatric: awake, alert, oriented x 3 Cranial Nerves: normal hearing, normal speech, PERRL Coordination/Gait: normal finger to nose, normal gait Motor/Sensory: no motor/sensory deficits Skin: intact, normal color Core Measures Sepsis Present: No Sepsis Focused Exam Completed? No (Jadiel Hicks) Progress Differential Diagnosis: carotid dissection, cav sinus thromb, cluster RIVERA, encephalitis, IC mass/tumor, intracranial Hem., meningitis, migraine RIVERA, musculoskeletal pain, sinusitis, SSS thrombosis, subarach. Hem., tension RIVERA, temporal arteritis, TMJ syndrome, viral cephalgia Plan of Care: Orders Procedure Date/time Status COMPREHENSIVE METABOLIC PANEL 04/09 1206 Complete CBC WITHOUT DIFFERENTIAL 04/09 1206 Complete Current Medications Sig/Ursula Start time Last Medication Dose Stop Time Status Admin Morphine Sulfate 2 MG ONCE ONE 04/09 1345 CAN (MORPHINE SULFATE) 04/09 1346 Laboratory Tests 04/09/18 1229: Anion Gap 13, Estimated GFR > 60, BUN/Creatinine Ratio 14.4, Glucose 111 H, Calcium 9.5, Total Bilirubin 0.8, AST 29, ALT 42, Alkaline Phosphatase 74, Total Protein 7.4, Albumin 4.3, Globulin 3.1, Albumin/Globulin Ratio 1.4, CBC w Diff NO MAN DIFF REQ, RBC 4.53 L, MCV 89.8, MCH 30.7, MCHC 34.2, RDW 14.2, MPV 8.8, Gran % 55.9, Lymphocytes % 37.3, Monocytes % 4.3, Eosinophils % 1.8, Basophils % 0.7, Absolute Granulocytes 3.0, Absolute Lymphocytes 2.0, Absolute Monocytes 0.2 , Absolute Eosinophils 0.1, Absolute Basophils 0 Diagnostic Imaging: Viewed by Me: CT Scan. Discussed w/RAD: CT Scan. Radiology Impression: PATIENT: RITO WOODS PRESENT AGE: 62 PATIENT ACCOUNT NO: [id number] : 57 LOCATION: [facility] ORDERING PHYSICIAN: Jadiel SLOAN SERVICE DATE: 04/09/18 EXAM TYPE: CAT - CT HEAD ANGIOGRAM EXAMINATION: CT HEAD ANGIOGRAM CLINICAL INFORMATION: Severe headache after lifting. Evaluate for hemorrhage or aneurysm. COMPARISON: CT head 12/13/2016. TECHNIQUE: Inspector Subassemblies images were obtained. A CT angiogram of the head was performed in the arterial phase after the intravenous administration of 95 mL Optiray 320. Pre and delayed postcontrast images of the head were also obtained. MIP reconstructions were generated in multiple orientations at the acquisition workstation. Multiple three-dimensional surface rendered images and maximum intensity projection images were generated on a dedicated 3-D lab workstation. Arterial stenoses are measured in accordance with NASCET criteria or similar method if applicable. Total exam dose-length product 2096.2 mGy-cm FINDINGS: Head: Delayed postcontrast images reveal no abnormal intracranial mass or enhancement. There is no intracranial mass effect or midline shift. Lateral and third ventricles are normal. No hydrocephalus. Fuentes-white matter differentiation is grossly preserved and there is no evidence of acute territorial infarct. The calvarium and skull base are intact. Mastoid air cells and middle ear cavities are well aerated. Mild paranasal sinus disease primarily affecting the anterior ethmoids. CT angiogram head: The visualized distal extracranial internal carotid arteries are patent. The petrous, cavernous, and supraclinoid segments of the internal carotid arteries are patent. The intradural vertebral artery segments and basilar artery are patent. Anterior, middle, and posterior cerebral artery complexes are normal. No evidence of high- grade stenosis or proximal vascular occlusion. IMPRESSION: Normal CT angiogram of the head. No evidence of aneurysm. No high-grade stenosis or proximal occlusion is visualized within the intracranial vessels. DICTATED BY: Flip Hdez MD DATE/TIME DICTATED:04/09/181429 QUALITY INSPECTOR:RYAN DATE/ TIME TRANSCRIBED:04/09/181429 CONFIDENTIAL, DO NOT COPY WITHOUT APPROPRIATE AUTHORIZATION. <Electronically signed in Other Vendor System> SIGNED BY: Flip Hdez MD 04/09/18 1440 Comments: 04/09/2018 7:25:15 PM Headache improved. Patient clinically looks well. In no apparent distress. Nontoxic-appearing. No evidence of intracranial bleed. Follow-up with primary care doctor. Case discussed with Dr. Gama. Neurologically intact. (Jadiel Hicks) Departure Departure Disposition: HOME OR SELF CARE Condition: Stable Clinical Impression Primary Impression: Headache Referrals: Les SIMENTAL,Asim Matamoros (PCP/Family) Additional Instructions: Take Fioricet as prescribed. Follow-up with primary care doctor. If any concerns worsening symptoms. Please go over all results of today's visit with your primary care doctor. Contact your primary care doctor to let them know you were here in the emergency room. There may be nonspecific findings which may not be related to your visit today here in the emergency room but may require further evaluation and chronic monitoring by your primary care doctor. If you had a laceration today the chance of foreign body always remains. You should follow-up with your primary care doctor for recheck in 3-5 days for a wound check. If you had an x-ray done there is a chance that a fracture could have been missed on initial read and you should follow-up with your primary care doctor for repeat x-rays if symptoms persist. If your blood pressure was elevated here in the emergency room please have rechecked by pa primary care doctor within the next 48. If you were prescribed a narcotic here in the emergency room or any type of controlled substances you're not allowed to drive while taking this medication or operate any type of heavy machinery. Narcotics can make you feel lightheaded dizziness nausea and can cause constipation. You may need to slate picker a stool softener. Thank you for choosing [facility] emergency room. Please return to the emergency room immediately if you have any other concerns worsening of symptoms. Departure Forms: Customer Survey General Discharge Information Prescriptions: Current Visit Scripts Butalb/Acetaminophen/Caffeine (Xbwspt-Tzkyeiri-Rjcx 50-325-40) 1-2 TAB PO Q8P PRN headache #20 TAB (Jadiel Hicks) PA/FREIGHT CAR REPAIRER Co-Sign Statement Statement: ED Attending supervision documentation- [] I saw and evaluated the patient. I have also reviewed all the pertinent lab results and diagnostic results. I agree with the findings and the plan of care as documented in the PA's/FREIGHT CAR REPAIRER's documentation. [X] I have reviewed the ED Record and agree with the PA's/FREIGHT CAR REPAIRER's documentation. [] Additions or exceptions (if any) to the PAs/FREIGHT CAR REPAIRER's note and plan are summarized below: [] (Lanette SIMENTAL,Cesar Matamoros)
== END 2018-04-09 15:13 ==
LOC: ERH 11:36
PROVIDERS: Physician Assistant Medical
DX: R51 Headache (principal)
CPT/HCPCS: 96374; 96375; J0131; J2405